=== PATIENT | female | born 1950 | race Caucasian/White ===

== ENCOUNTER 2017-06-22 18:57 | Emergency (ER) | payer OTHER, BC ==
[~2017-06-22] VITALS: Ht 152.4 cm; Wt 73.6 kg
[~2017-06-22 18:57] MED LIST: ASPEC325 PO; BNC40 PO; HYDC25 PO; POTA-327 PO
[2017-06-22 18:59] VITALS: TEMP 36.8; Ht 152.4 cm; Wt 73.6 kg
[2017-06-22] MEDS ORDERED: HYDROCODONE/ACETAMOPHEN 5/325MG TAB PO STA (19:07)
[2017-06-22] MEDS ORDERED: ONDANSETRON 4MG OD TAB PO ONE (19:15)
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
[2017-06-22] MEDS ORDERED: METF-384 PO (20:09)
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
[2017-06-22] MEDS ORDERED: NORCO 5/325MG HOME PACK PO ONE (21:45)
[2017-06-22 22:02] VITALS: BP 120/81; PULSE 80; O2SAT 96
== END 2017-06-22 22:02 | disposition home or self-care (01) ==
LOC: EDBD 18:57 → C.EDA 18:58
DX: S06.0X0A Concussion without loss of consciousness, initial encounter (principal); S16.1XXA Strain of muscle, fascia and tendon at neck level, initial encounter; S39.012A Strain of muscle, fascia and tendon of lower back, initial encounter; R51 Headache; M25.512 Pain in left shoulder; I10 Essential (primary) hypertension; Z79.899 Other long term (current) drug therapy; V43.12XA Car passenger injured in collision with other type car in nontraffic accident, initial encounter; Y92.481 Parking lot as the place of occurrence of the external cause